=== PATIENT | male | born 2005 | race Hispanic/Latino ===

== ENCOUNTER 2024-10-22 11:23 | Emergency (ER) | payer OTHER ==
[~2024-10-22] VITALS: Ht 165.1 cm; Wt 63.5 kg
[2024-10-22] MEDS: Solu-medROL 125MG VIAL IVP ONE (12:22)
[2024-10-22] MEDS: AMP/SULBAC 3GM+NS 100ML IV ONE (12:23)
[2024-10-22] MEDS ORDERED: AMOX1TAB16 PO (12:48)
--- NOTE | 2024-10-22 12:54 | ERN ---
General Chief Complaint: Eye Problems Stated Complaint: LEFT EYE SWELLING Time Seen by MD: 11:25 Time Seen by Midlevel: 11:25 Source: patient History of Present Illness Initial Comments 19-year-old male presenting to the emergency department with left periorbital swelling. The patient states his symptoms started 24 hours ago after he noticed an ingrown hair on the medial aspect of his eyebrow. It was large enough that he decided to report to a local urgent care where they started him on Bactrim. The following morning he woke up with left periorbital swelling which concerned him so he decided to report to the ER for further evaluation. He denies any fever, chills, painful eye movement, eye discharge, vision changes, or any other symptoms at this time. Allergies: Coded Allergies: No Known Drug Allergies (Unverified Allergy, Unknown, 10/22/24) Home Meds Active Scripts Amoxicillin/Potassium Clav (Amox Tr-K Clv 875-125 mg Tab) 875 Mg-125 Mg Tablet, 1 EACH PO BID for 10 Days, #20 TAB 0 Refills Prov:ABRAHAM CAMPUZANO 10/22/24 Past Medical History Past Medical History: No Pertinent History Past Surgical History: None ROS Dictation CONSTITUTIONAL: Negative except for HPI HEAD/FACE: Negative except for HPI EENT: Negative except for HPI RESPIRATORY: Negative except for HPI GASTROINTESTINAL/ABDOMINAL: Negative except for HPI GENITOURINARY: Negative except for HPI MUSCULOSKELETAL: Negative except for HPI INTEGUMENTARY: Negative except for HPI NEUROLOGICAL/PSYCH: Negative except for HPI HEMATOLOGIC/LYMPHATIC: Negative except for HPI All Systems Negative, Except as noted above. 13 point review of systems assessed and all negative except for above. Physical Exam Physical Exam Dictation Vital Signs reviewed General Appearance: Alert, oriented x 3, no acute distress, well developed, nourished. Head and Face: non-traumatic. Eyes: PERRL, pink conjunctivas, eyelid no trauma, anterior chamber with arcus senilis. Left periorbital swelling Ears: Pinnas intact and no signs of trauma or erythema ear canals clear and no discharge TM no erythema Nose: No discharge, no bleeding. Oropharynx: Mouth normal, tongue pink, pharynx clear,no erythema, tonsils no exudates, no abscesses noted, mucous me mbrane moist Neck: Supple, non-tender, no thyromegaly, no masses, no JVD, no bruits Breast:Deferred Chest:No tenderness, no crepitus, no paradoxical movement, no retractions Lungs:Clear, well-ventilated, symmetric, no rales, no wheezing, no rhonchi, no stridor, good breath sounds bilaterally Heart: Regular rate, regular rhythm, no murmur, no gallops Vascular: no peripheral edema, Abdomen: Soft, positive bowel sounds, nondistended, no guarding, nontender, no rebound, no masses no hepatomegaly, no splenomegaly, no Enriquez's sign, no hernias. Rectal: Deferred Genital: Deferred Neurological: Normal speech, motor function intact, sensory function intact Musculoskeletal: Neck nontender, full range of motion, back nontender, full range of motion, Extremities: nontender, full range of motion Skin: Color pink, dry, no turgor, no rash, no lacerations, no abrasions, no contusions. Lymphatic: Deferred MDM MDM: 19-year-old male presenting to the emergency department with left periorbital swelling. The patient states his symptoms started 24 hours ago after he noticed an ingrown hair on the medial aspect of his eyebrow. It was large enough that he decided to report to a local urgent care where they started him on Bactrim. The following morning he woke up with left periorbital swelling which concerned him so he decided to report to the ER for further evaluation. He denies any fever, chills, painful eye movement, eye discharge, vision changes, or any other symptoms at this time. On physical examination the patient has swelling to the left upper eyelid. Pupils are equal round and reactive to light. No painful range motion of the eye. There is no drainable abscess appreciated. His vital signs are stable. He is afebrile and nontoxic appearing. Patient was given a loading dose of Unasyn and was discharged home on Augmentin. Return precautions were discussed Differential diagnosis: Preseptal cellulitis, orbital cellulitis, blepharitis There are no social concerns with this patient. Prescription drug management Prescriptions will include: Augmentin Medical management and examination interpretation discussions were had by me with other qualified healthcare professionals as indicated for the patient's care. ED Course Orders Procedure Category Date Status Time Methylprednisolone PHA 10/22/24 Complete Succ 125mg (Solu-Medr 12:00 Amp/Sulbac 3gm+Ns PHA 10/22/24 Complete 100ml (Unasyn 3gm+Ns 1 12:00 Current Medications Medications (Trade) Dose Ordered Sig/[place] Route PRN Reason Start Time Stop Time Status Last Admin Dose Admin Ampicillin Sodium/ Sulbactam Sodium (Unasyn 3gm+NS 100ml) 3 gm ONCE ONCE IV 10/22/24 12:00 10/22/24 12:01 DC 10/22/24 12:23 Methylprednisolone Sodium Succinate (Solu-medROL 125MG) 125 mg ONCE ONCE IVP 10/22/24 12:00 10/22/24 12:01 DC 10/22/24 12:22 Vital Signs Date Time Temp Pulse Resp B/P (MAP) Pulse Ox O2 Delivery O2 Flow Rate FiO2 10/22/24 13:06 97.9 86 18 119/86 98 Room Air* 0 21 10/22/24 11:27 98.4 108 16 166/99 97 Room Air 0 DX & DISP Disposition: Discharge Departure Impression: Primary Impression: Preseptal cellulitis of left upper eyelid Condition: Stable Scripts Amoxicillin/Potassium Clav (Amox Tr-K Clv 875-125 mg Tab) 875 Mg-125 Mg Tablet 1 EACH PO BID for 10 Days, #20 TAB 0 Refills Prov: ABRAHAM CAMPUZANO 10/22/24 Referrals: SELF,REFERRAL (PCP) Time of Disposition: 12:47 I have reviewed the case, and I agree with, Diagnosis and Plan I performed the substantive portion of the visit. I have reviewed and personally made and approve the management plan that is documented in the note by myself or the CINDY. I acknowledge for responsibility for the patient's manage ment plan. ABRAHAM CAMPUZANO October 22, 2024 12:54 DAVID GRUBER DO October 24, 2024 04:41
[2024-10-22 13:06] VITALS: BP 119/86; PULSE 86; RESP 18; TEMP 97.8; O2SAT 98
== END 2024-10-22 13:14 | disposition home or self-care (01) ==
LOC: EDH 11:23
DX: L03.213 Periorbital cellulitis (principal)
CPT/HCPCS: 99284; 96365; 96375; J2919; J0295